=== PATIENT | female | born 1960 | race Caucasian/White ===

== ENCOUNTER 2016-08-01 09:58 | Day surgery (SDC) | payer OTHER ==
[~2016-08-01 09:58] MED LIST: Lactated Ringers 1,000 ML IV SCH; Lidocaine 2% 5 ML SDV ONE; Propofol 200 MG/20 ML SDV ONE; fentaNYL 100 MCG/2 ML SDV ONE
--- NOTE | 2016-08-01 12:44 | PCM.PREANE ---
Preanesthetic Assessment - ANESTHESIA/TRANSFUSION/FAMILY HX Anesthesia/Transfusion History: Prior Anesthesia, Prior Transfusion Family History of Anesthesia Reaction: No Intubation History: Unknown - REVIEW OF SYSTEMS Constitutional: Reports: no symptoms PLASTIC SURGERY SPECIALIST: Reports: no symptoms Respiratory: Reports: no symptoms Cardiovascular: Reports: blood pressure problem (treated) GI: Reports: difficulty swallowing Other: Reports: diabetes (Dx pre-diabetic) - PHYSICAL ASSESSMENT O2 Sat by Pulse Oximetry: 96 RR: 16 Vital Signs: Last Vital Signs Temp 97.2 F 08/01/16 12:25 Pulse 54 L 08/01/16 12:25 Resp 16 08/01/16 12:25 BP 106/65 08/01/16 12:25 Pulse Ox 96 08/01/16 12:25 Height: 5 ft 8 in Weight: 188 lb ASA Class: 2 Mental Status: alert & oriented x3 Airway Class: Mallampati = 1 Dentition: Reports: normal dentition Thyro-Mental Finger Breadths: 3 Mouth Opening Finger Breadths: 3 ROM/Head Extension: full Respiratory Status: lungs clear to auscultation bilaterally Cardiovascular Status: regular rate & rhythm, no murmur - ALLERGIES Allergies/Adverse Reactions: Allergies Allergy/AdvReac Type Severity Reaction Status Date / Time No Known Allergies Allergy Verified 10/11/13 15:18 - BLOOD Blood Available: No Product(s) Available: None - ANESTHESIA PLAN Preop Beta Richard: No Anesthesia Type Planned: MAC - ACKNOWLEDGEMENTS Pt an appropriate candidate for the planned anesthesia: Yes Alternatives and risks of anesthesia discussed w pt/guardian: Yes Pt/Guardian understands and agree with anesthesia plan: Yes PreAnesthesia Questionnaire HEENT History: Reports: Allergic rhinitis, Other (see below) Other HEENT History: wears glasses Cardiovascular History: Reports: High cholesterol, Hypertension Other Musculoskeletal History: occasional back pain Hematologic History: Reports: Blood transfusion(s) Other Hematologic History: blood transfusion after D&C - Past Surgical History Head Surgeries/Procedures: Reports: None HEENT Surgical History: Reports: Adenoidectomy, Tonsillectomy Female Surgical History: Reports: D&C Dermatological Surgical History: Reports: Other (see below) - SUBSTANCE USE Smoking Status *Q: Former Smoker Tobacco Use Within Last Twelve Months: Cigarettes Recreational Drug Use History: Yes Recreational Drug Type: Recreational Drug Last Use: 5 yrs ago - HOME MEDS Home Medications: Home Meds Calcium Carbonate/Vitamin D3 [Calcium 600 + Vit D 200] 1 tab PO BID 03/16/15 [ History] Cetirizine [ZyrTEC] 10 mg PO ASDIRECTED 03/16/15 [History] Fexofenadine [Maggie] 1 tab PO ASDIRECTED 03/16/15 [History] Fish Oil/Borage/Flax/Om3,6,9#1 [[place] 3-6-9 Complex Softgel] 3,000 mg PO DAILY 03/16/15 [History] Fluticasone Propionate [Flonase Allergy Relief] 1 - 2 sprays NASBOTH DAILY 03/16 [History] Glucosamine/D3/Boswellia Marta [Osteo Bi-Flex Caplet] 2 tab PO DAILY 03/16/15 [ History] Krill/Om-3/DHA/EPA/Phospho/Ast [Krill Oil 1,000 mg Softgel] 1,000 mg PO DAILY [History] Lactobacillus Combination No.4 [Probiotic] 1 caplet PO DAILY 03/16/15 [History] Lisinopril 40 mg PO DAILY 03/16/15 [History] Multivitamin [Multivitamins] 1 tab PO DAILY 03/16/15 [History] Ubidecarenone [Coq-10] 200 mg PO DAILY 03/16/15 [History] Ascorbic Acid [Vitamin C] 1,000 mg PO DAILY 07/26/16 [History] Cyanocobalamin (Vitamin B12) [Vitamin B12] 3,000 mcg PO DAILY 07/26/16 [History] Pravastatin Sodium 80 mg PO DAILY 07/26/16 [History] - CURRENT (IN HOUSE) MEDS Current Meds: Current Medications Lactated Ringer's (Ringers, Lactated) 1,000 mls @ 125 mls/hr IV ASDIRECTED [facility] Last Admin: 08/01/16 12:27 Dose: 125 mls/hr Discontinued Medications Fentanyl (Sublimaze) Confirm Administered Dose 100 mcg .ROUTE .STK-MED ONE Stop: 08/01/16 08:12 Lidocaine (Xylocaine-Mpf 2%) Confirm Administered Dose 5 ml .ROUTE .STK-MED ONE Stop: 08/01/16 08:12 Propofol (Diprivan 20 Ml) Confirm Administered Dose 400 mg .ROUTE .STK-MED ONE Stop: 08/01/16 08:12
[2016-08-01] MEDS ORDERED: Propofol 200 MG/20 ML SDV ONE (13:33)
[2016-08-01] MEDS ORDERED: Ondansetron 4 MG/2 ML SDV IVPUSH PRN (14:11)
[2016-08-01] MEDS ORDERED: Lactated Ringers 1,000 ML IV SCH (14:15)
--- NOTE | 2016-08-01 14:15 | PCM.OPNOTE ---
- General Post-Op/Procedure Note Date of Surgery/Procedure: 08/01/16 Operative Procedure(s): Esophagogastroduodenoscopy with biopsy Pre Op Diagnosis: Solid food dysphagia. Intermittent vomiting. Post-Op Diagnosis: Gastritis. Hiatal hernia. Anesthesia Technique: MAC (ASA II) Primary Surgeon: Rigo Andrea Conveyor Feeder Offbearer: Ramona Laurent Condition: Good Free Text/Narrative:: Dictation [id number]
--- NOTE | 2016-08-01 14:16 | PCM.POSTAN ---
POST ANESTHESIA ASSESSMENT - MENTAL STATUS Mental Status: alert, oriented - RESPIRATORY Respiratory Status: respiratory rate WNL, airway patent, O2 saturation stable - CARDIOVASCULAR CV Status: pulse rate WNL, blood pressure stable - GASTROINTESTINAL GI Status: no symptoms - POST OP HYDRATION Hydration Status: adequate & stable
--- NOTE | 2016-08-01 14:35 | OR ---
SURGEON: Rigo Andrea M.D. DATE OF PROCEDURE: 08/01/2016 OPERATION PERFORMED: Esophagogastroduodenoscopy with biopsy. COURT INTERPRETER: Dr. Laurent. ANESTHESIA: MAC. ASA CLASSIFICATION: II. PREOPERATIVE DIAGNOSIS: Solid food dysphagia with intermittent vomiting. POSTOPERATIVE DIAGNOSES: 1. Mild gastritis. 2. Hiatal hernia. DESCRIPTION OF PROCEDURE: The patient was taken to the endoscopy room and positioned on the endoscopy table in the supine position. Time-out was called for appropriate identification of patient and procedure. Monitored anesthesia care was provided. The bite block was placed between the patient's teeth. The gastroscope was inserted into the mouth through the bite block and advanced without difficulty through the esophagus and stomach into the duodenum where examination was carried out in a retrograde fashion. The duodenum showed no acute inflammatory changes. Stomach showed a mild gastritis. No acute erosions were noted. No ulcers were seen. Antral biopsies were obtained to look for the presence of Helicobacter pylori. The gastroscope was retroflexed to visualize the proximal stomach. No tumors, polyps, or ulcerations were seen. The gastroscope was then straightened and slowly withdrawn aspirating the stomach as the scope was withdrawn. The patient was noted to have a small hiatal hernia. No acute reflux was noted. The GE junction was still well defined and showed no ulcerations. The esophagus demonstrated good contractility. The vocal cords were visualized as the scope was withdrawn and noted to move symmetrically. The gastroscope was then removed with the patient having tolerated the procedure well. She was then taken to recovery room in stable condition. ROCK / EDWARD /[id number]
--- NOTE | 2016-08-01 15:35 | PCM48HPAN ---
Post Anesthesia Note - EVALUATION WITHIN 48HRS OF ANESTHETIC Vital Signs in Normal Range: Yes Patient Participated in Evaluation: Yes Respiratory Function Stable: Yes Airway Patent: Yes Cardiovascular Function Stable: Yes Hydration Status Stable: Yes Pain Control Satisfactory: Yes Nausea and Vomiting Control Satisfactory: Yes Mental Status Recovered: Yes
[2016-08-01 17:47] VITALS: BP 92/58
== END 2016-08-01 14:55 | disposition home or self-care (01) ==
LOC: MW.SDS 09:58
PROVIDERS: ATTEND Surgery
PROC: 0DB68ZX Excision of Stomach, Via Natural or Artificial Opening Endoscopic, Diagnostic (ICD-10-PCS; principal; 2016-08-01)
DX: K29.50 Unspecified chronic gastritis without bleeding (principal); K44.9 Diaphragmatic hernia without obstruction or gangrene; J30.9 Allergic rhinitis, unspecified; E78.5 Hyperlipidemia, unspecified; H91.90 Unspecified hearing loss, unspecified ear; I10 Essential (primary) hypertension; E78.00 Pure hypercholesterolemia, unspecified; F17.200 Nicotine dependence, unspecified, uncomplicated; R73.03 Prediabetes
CPT/HCPCS: 43239; 88305; 88312; J3010; J7120; 00740; J2704

== ENCOUNTER → 2016-10-09 | Outpatient (CLI) | payer MEDICAID | LOC: MW.CHOBGYN 09:57 | PROVIDERS: ATTEND Nurse Practitioner Women's Health | DX: R73.09 Other abnormal glucose (principal) | CPT/HCPCS: 36415; 82947; 83036 ==